=== PATIENT | male | born 1990 | race Caucasian/White ===

== ENCOUNTER 2021-11-20 06:17 | Emergency (ER) | payer OTHER ==
[~2021-11-20] VITALS: Ht 180.3 cm; Wt 77.2 kg
[~2021-11-20 06:17] MED LIST: AMOXIL500 MG PO; ANAPROX DS550 MG PO; ANAPROX275 MG PO; CATAFLAM50 MG PO; CIPROFLOXACIN500 MG PO; CLEOCIN150 MG PO; HYDROCODONE BIT1 T11 PO; MOTRIN600 MG PO; MOTRIN800 MG PO; NAPROSYN500 MG PO; NKHM; NORCO 325 MG-51 TAB PO; PEN-VEE K500 MG PO; TRAMADOL HCL50 MG PO; TRIMOX500 MG PO; ULTRAM50 MG PO
[2021-11-20 07:41] LABS: BILIRUBIN Negative (Negative); BLOOD Trace-Lysed (Negative); CLARITY Cloudy (Clear); COLOR Yellow (Yellow); GLUCOSE Negative (Negative); KETONE Trace (Negative); LEUKO ESTERASE 2+ (Negative); NITRITE Positive (Negative); PH 5.5 (4.5-8.0)
[2021-11-20 08:02] LABS: BACTERIA 4+; WBC TNTC wbc/hpf (0-5)
[2021-11-20] MEDS ORDERED: CIPRO500 MG PO (09:31)
== END 2021-11-20 09:47 | disposition home or self-care (01) ==
LOC: ED 06:17
PROVIDERS: Internal Medicine
DX: N39.0 Urinary tract infection, site not specified (principal)

== ENCOUNTER 2022-03-02 15:44 | Emergency (ER) | payer OTHER ==
[~2022-03-02] VITALS: Wt 72.6 kg
[~2022-03-02 15:44] MED LIST changes: +CIPRO500 MG PO
== END 2022-03-02 18:20 | disposition left against medical advice (07) ==
LOC: ED 15:44
DX: M79.605 Pain in left leg (principal)

== ENCOUNTER 2024-11-22 11:31 | Emergency (ER) | payer MEDICAID ==
[~2024-11-22] VITALS: Ht 180.3 cm; Wt 72.6 kg
[2024-11-22] MEDS ORDERED: NAPROSYN500 MG PO (12:40)
[2024-11-22] MEDS ORDERED: Acetaminophen/Oxycodone 5 MG/325 MG TABLET PO ONE (12:50)
== END 2024-11-22 12:47 | disposition home or self-care (01) ==
LOC: ED 11:31
DX: S62.330A Displaced fracture of neck of second metacarpal bone, right hand, initial encounter for closed fracture (principal); S62.390A Other fracture of second metacarpal bone, right hand, initial encounter for closed fracture; F17.200 Nicotine dependence, unspecified, uncomplicated; W22.01XA Walked into wall, initial encounter; Y93.89 Activity, other specified; Y92.009 Unspecified place in unspecified non-institutional (private) residence as the place of occurrence of the external cause; Y99.8 Other external cause status

== ENCOUNTER 2024-11-30 23:37 | Emergency (ER) | payer MEDICAID ==
[~2024-11-30] VITALS: Ht 180.3 cm; Wt 72.6 kg
[2024-12-01] MEDS ORDERED: Acetaminophen/Hydrocodone 5 MG/325 MG TABLET PO ONE (00:05)
[2024-12-01] MEDS ORDERED: Ondansetron Hydrochloride 4 MG TAB SL ONE (00:05)
== END 2024-12-01 00:12 | disposition home or self-care (01) ==
LOC: ED 23:37
DX: S62.300D Unspecified fracture of second metacarpal bone, right hand, subsequent encounter for fracture with routine healing (principal); R20.2 Paresthesia of skin; Z79.899 Other long term (current) drug therapy; X58.XXXD Exposure to other specified factors, subsequent encounter

== ENCOUNTER 2025-07-04 15:07 | Emergency (ER) | payer OTHER | END 2025-07-04 16:14 | LOC: ED 15:07 | DX: R07.89 Other chest pain (principal); F41.9 Anxiety disorder, unspecified; R06.02 Shortness of breath; Z79.899 Other long term (current) drug therapy; Y04.8XXA Assault by other bodily force, initial encounter; Y93.89 Activity, other specified; Y92.89 Other specified places as the place of occurrence of the external cause; Y99.8 Other external cause status ==